=== PATIENT | male | born 1990 | race Two or more races ===

== ENCOUNTER 2020-12-03 19:04 | Emergency (ER) | payer OTHER, SELFPAY ==
--- NOTE | ~2020-12-03 | XR_ITS ---
EXAMINATION: XR FINGER, LEFT CLINICAL INFORMATION: Crush third digit with laceration COMPARISON: None TECHNIQUE: 3 views of the left third digit. FINDINGS: There is a comminuted acute fracture of the tip of the distal phalanx of the third digit with associated soft tissue swelling. No other fractures seen. No dislocation. XR/XR finger LT min 2V IMPRESSION: Fractured distal tip of the distal third phalanx
[2020-12-03 19:19] VITALS: BP 107/50; PULSE 64; RESP 16; TEMP 36.6; O2SAT 98; BMI 29.9
[2020-12-03] MEDS: oxyCODONE HCl Immed Release 5 MG TABLET PO (20:08)
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
== END 2020-12-03 21:34 | disposition home or self-care (01) ==
PROVIDERS: Emergency Provider Emergency Medicine
DX: S61.213A Laceration without foreign body of left middle finger without damage to nail, initial encounter (principal); S67.193A Crushing injury of left middle finger, initial encounter; X58.XXXA Exposure to other specified factors, initial encounter; Y93.9 Activity, unspecified; Y92.9 Unspecified place or not applicable; Y99.9 Unspecified external cause status
CPT/HCPCS: 73140; 99283; 99284

== ENCOUNTER → 2020-12-08 08:27 | Outpatient (BNVA) | payer OTHER, SELFPAY | PROVIDERS: Visit Provider Physician Assistant | DX: S62.632B Displaced fracture of distal phalanx of right middle finger, initial encounter for open fracture (principal); W23.0XXA Caught, crushed, jammed, or pinched between moving objects, initial encounter; W01.198A Fall on same level from slipping, tripping and stumbling with subsequent striking against other object, initial encounter; Y93.39 Activity, other involving climbing, rappelling and jumping off; Y92.9 Unspecified place or not applicable; Y99.8 Other external cause status | CPT/HCPCS: 99202 ==

== ENCOUNTER 2023-02-06 18:33 | Emergency (ER) | payer OTHER, SELFPAY ==
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
[2023-02-06 19:13] VITALS: BP 120/51; PULSE 74; RESP 16; TEMP 36.7; O2SAT 97; BMI 26.5
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
== END 2023-02-06 22:04 | disposition home or self-care (01) ==
PROVIDERS: Emergency Provider Emergency Medicine
DX: S39.012A Strain of muscle, fascia and tendon of lower back, initial encounter (principal); S16.1XXA Strain of muscle, fascia and tendon at neck level, initial encounter; M54.6 Pain in thoracic spine; R07.89 Other chest pain; M54.2 Cervicalgia; V44.5XXA Car driver injured in collision with heavy transport vehicle or bus in traffic accident, initial encounter; Y93.9 Activity, unspecified; Y92.410 Unspecified street and highway as the place of occurrence of the external cause; Y99.9 Unspecified external cause status; Z79.899 Other long term (current) drug therapy
CPT/HCPCS: 71045; 72072; 72100; 72125; 99284

== ENCOUNTER 2025-01-29 19:56 | Emergency (ER) | payer OTHER, SELFPAY ==
[2025-01-29 20:09] VITALS: BP 129/54; PULSE 72; RESP 16; TEMP 36.9; O2SAT 97; BMI 27.9
--- NOTE | 2025-01-29 20:14 | ED_ITS ---
HPI - Skin/Abscess/Foreign Bdy General Chief complaint: Urogenital-Male Stated complaint: Cysts/genital area Time Seen by Provider: 01/29/25 23:05 Source: patient Limitations: no limitations History of Present Illness ED Provider: Le Browne PA-C HPI narrative: 34-year-old male presents with concern for infected ?cyst? on the penis over the past 3 days. Patient states he has had similar lesions. The lesion resembled an infected hair, it has since increased in size, has become extremely tender. It is on the shaft of the penis. Denies fever. Related Data Previous Rx's ?Medication ?Instructions ?Recorded acetaminophen 500 mg tablet 1,000 mg (2 x 500 mg) PO Q ID PRN 12/03/20 (Tylenol Extra Strength) fever or pain #14 tabs cephalexin 500 mg capsule 500 mg PO Q6H 14 days #56 ca ps 12/03/20 ibuprofen 800 mg tablet 800 mg PO Q8H PRN pain #14 t abs 12/03/20 oxycodone 5 mg tablet 5 mg PO Q6H PRN pain #15 tab s 12/03/20 cyclobenzaprine 10 mg tablet 10 mg PO TID PRN muscle s pasm #20 02/06/23 tabs ibuprofen 600 mg tablet 600 mg PO Q6H PRN pain #30 t abs 02/06/23 lidocaine 5 % topical patch 1 patch topical DAILY #30 ea 02/06/23 doxycycline hyclate 100 mg capsule 100 mg PO BID #13 c aps 01/30/25 Allergies Allergy/AdvReac Type Severity Reaction Status Date / Time No Known Allergies Allergy Verified 01/30/25 20:54 Review of Systems Review of Systems: Yes all other systems are reviewed and are negative Constitutional: Constitutional: Denies fatigue and Denies fever(s) Cardiovascular: Cardiovascular: Denies chest pain and Denies dyspnea Respiratory: Respiratory: Denies dyspnea Gastrointestinal: Gastrointestinal: Denies abdominal pain, Denies nausea and Denies vomiting Genitourinary: Genitourinary: Reports genital lesions, Reports genital pain, Denies penile discharge, Denies scrotal swelling, Denies testicular mass and Denies testicular pain Endocrine: Endocrine: Denies fatigue PMFSH Past Medical History Attestation statement: The following information was validated with the patient. Medical History Asthma Social History Social History Alcohol intake: never Substance Use Type: Marijuana Advance Directives: No Advance Directives Information Provided: No Current occupational status: unemployed Current occupation: rt hand Physical Exam Vital Signs: Vital Signs: Last Vital Signs Temp 98.7 F 01/30/25 01:53 Pulse 66 01/30/25 01:53 Resp 16 01/30/25 01:53 BP 108/55 L 01/30/25 01:53 Pulse Ox 98 01/30/25 01:53 O2 Del Method Room Air 01/30/25 01:53 BMI result Body Mass Index 27.9 Const: Other: Alert well-appearing, anxious Orientation/consciousness: patient oriented x3 Resp: Effort & Inspection: normal respiratory effort Cardio: Other: Normal peripheral perfusion : Other: Tender fluctuant swelling along the penile shaft, overlying erythema, no active purulence, the remainder of the external genitalia is normal in appearance, no swelling erythema or tenderness of the testicles themselves no penile discharge Skin: Other: Warm dry no rash Neuro: General: patient oriented x3, gait normal, no focal motor deficits and CN's II-XI intact bilaterally Psych: Other: Cooperative Course Course Course Narrative: This is a RME preformed in triage by Marina Umanzor PA-C. Date:01/29/25, time 814 pm. Patient presents with penis abscess. Here with gf of 13 years. presents to the ED with his mother and girlfriend for evaluation of a painful mass on the underside (ventral surface) of his penis, described as on the bottom itself near but not on the scrotum/testicles. The lesion began on Friday (four days ago) as a small bump but has enlarged to approximately the size of a aramis?quarter. He attempted to express it at home, noted a small amount of white material/pus, after which the lesion became larger and more painful. He reports pain at the site but has taken no analgesics. He denies dysuria and significant urethral discharge. He has had similar, smaller lesions in the past that resolved spontaneously and were never this large. He felt like he was going to pass out when he tried to express the lesion at home. Review of Systems: ? Constitutional: Not discussed. ? Genitourinary: Painful penile mass as described; denies dysuria; minimal white material expressed once; otherwise no ongoing discharge. Work UP:?Needs I and D Will defer full ROS and PE to treating provider. Patient will continued to be monitored in the interim. Medications Administered Discontinued Medications Generic Name Dose Route Start Last Admin Trade Name Amalia PRN Reason Stop Dose Admin Doxycycline Monohydrate 100 mg 01/30/25 01:26 01/30/25 01:54 Doxycycline Monohydrate 100 Mg Capsule PO 01/30/25 01:27 100 mg ONCE ONE Administration Lidocaine/Epinephrine 10 ml 01/29/25 23:58 01/30/25 00:39 Lidocaine Hcl 1%/Epi 1:100,000 10 Ml Vial INFILTRATI 01/29/25 23:59 10 ml ONCE ONE Administration Midazolam HCl 3 mg 01/29/25 23:58 01/30/25 00:39 Midazolam Hcl 2 Mg/2 Ml Vial IVPUSH 01/29/25 23:59 3 mg ONCE ONE Administration Morphine Sulfate 4 mg 01/29/25 23:58 01/30/25 00:38 Morphine Sulfate 4 Mg/Ml Cartridge IVPUSH 01/29/25 23:59 4 mg ONCE ONE Administration Protocol Lidocaine/Epinephrine/Tetracaine 3 ml 01/29/25 23:58 01/30/25 00:09 Lidocaine/Racepinep/Tetracaine 3 Ml Gel.Pf.Meenakshi TOPICAL 01/29/25 23:59 3 ml ONCE ONE Administration Medical Decision Making Medical Decision Making MDM Narrative: 34-year-old male presents with concern for infected ?cyst? on the penis over the past 3 days. Patient states he has had similar lesions. The lesion resembled an infected hair, it has since increased in size, has become extremely tender. It is on the shaft of the penis. Denies fever. No chronic issues History: Per patient I have considered the following differential diagnoses: Syphilis, herpes, cyst, cellulitis, purulent cellulitis, abscess Plan: Patient has a an abscess, this is not an STD related lesion. Viewed with bedside ultrasound, there was a drainable fluid collection, we will I and D. In place on antibiotics. Premedicated with Versed and morphine. No indication for labs or imaging, labs were ordered from triage I have independently reviewed the following tests: Labs: Leukocytosis, no left shift, not anemic, no electrolyte abnormality Differential Diagnosis Differential Diagnoses: The differential diagnosis associated with the presentation includes See [facility] Admission/Observation Consideration of admission/observation: Escalation of care including admission/observation considered Not applicable Lab Data [facility] Lab Attestation statement: I reviewed the patient's lab results. Procedures Abscess I/D Site: other (Penile shaft) Sedation/analgesia: midazolam and other (Morphine) Local Anesthetic: lidocaine 1% and with epi Amount of anesthesia used (mL): 3 Technique: incised with blade and ultrasound guided (EMERGENCY ULTRASOUND [id number] Procedures Indication: Incision and Drainage Concern for abscess along penile shaft. Images saved, there is a drainable fluid collection. Performed by Le Browne PA-C 01/30/2025) Amount of fluid expressed (mL): 10 Sent for culture/gram staining?: No Irrigation: Yes Packing used?: iodoform Ultrasound ED POC Ultrasound: EMERGENCY ULTRASOUND REPORT?Ultrasound-Assisted ED Procedures Indication: Incisi on and Drainage Concern for abscess along penile shaft. Images saved, there is a drainable fluid collection. Performed by Le Browne PA-C 01/30/2025 Discharge Plan Discharge Clinical Impression: Abscess of shaft of penis Patient Disposition: Home, Self-Care Instructions: Incision and Drainage (ED) Additional Instructions: You had an abscess that was drained. See home care instructions. In 2 days, allow hot water to run over the site, remove the packing that has protruding from the incision site. Take the doxycycline as directed. Follow up with your primary care as needed. Prescriptions: New doxycycline hyclate 100 mg capsule 100 mg PO BID Qty: 13 0RF No Action ibuprofen 800 mg tablet 800 mg PO Q8H PRN (Reason: pain) Qty: 14 0RF acetaminophen [Tylenol Extra Strength] 500 mg tablet 1,000 mg PO QID PRN (Reason: fever or pain) Qty: 14 0RF cephalexin 500 mg capsule 500 mg PO Q6H 14 Days Qty: 56 0RF oxycodone 5 mg tablet 5 mg PO Q6H PRN (Reason: pain) Qty: 15 0RF cyclobenzaprine 10 mg tablet 10 mg PO TID PRN (Reason: muscle spasm) Qty: 20 0RF lidocaine 5 % adhesive patch,medicated 1 patch topical DAILY Qty: 30 0RF Rx Instructions: leave on most painful area for up to 12 hrs ibuprofen 600 mg tablet 600 mg PO Q6H PRN (Reason: pain) Qty: 30 0RF Interventions: ED Discharge Assessment Last Done: 01/30/25 01:53 Discharge Date/Time: 01/30/25 01:57 Print Language: Frisian
--- OUTSIDE RECORDS SUMMARY | 2025-01-29 22:28 | XMS_ITS | Encounter Summary ---
Author Organization [facility] Address [address] [place] [phone] Phone Care Team Providers Care Automatic Print Developer Name Role Phone Lisbet Torres NP Primary Care Provider María eubanks Encounter Details Date Type Department Care Team (Late st Contact Info) Description 10/03/2016 Conversion Encounter [facility] - [address] [address] Social History Tobacco Use Types Packs/Day Years Used Date Smoking Tobacco: Never Assessed Sex and Gender Information Value Date Recorded Sex Assigned at Not on file Legal Sex Male 4:28 PM EDT Gender Identity Not on file Sexual Orientation Not on file documented as of this encounter Plan of Treatment Not on file documented as of this encounter Visit Diagnoses Not on filedocumented in this encounter Care Teams Automatic Print Developer Relationship Specialty Start Date End Date Lisbet Torres NP PCP - General 09/27/16 05/01/22 documented as of this encounter
--- OUTSIDE RECORDS SUMMARY | 2025-01-29 22:28 | XMS_ITS | Clinical Summary ---
Author Organization [facility] Address [address] [place] [address] Phone Care Team Providers Care Belt Changer Name Role Phone Unavailable Primary Care Provider Unavailabl e Immunizations Immunization Administration Dates Next Due DTP 11/17/1995, 2,03/19/1991,10/17,1990 H1N1 02/14/2009 Hep B, ped/adol 07/20/1997,02/09/1996,11/17/1995 Hib (PRP-T) 04/16/1993, 2,03/19/1991,10/17 IPV 11/17/1995, 2,1990,08/16 Influenza, injectable, trivalent 02/14/2009,02/19 MMR 11/17/1995,09/17/1991 Meningococcal Conj (Menactra) MCV4P 01/14/2006 Td (adult) (MBL), 2 Lf tetan us toxoid, PF, adsorbed 12/13/2002 Tdap 04/20/2008 Family History Relation Name Status Comments Father Alive Father: Alive a nd well Maternal Grandfather Materna l grandfather: Diabetes mellitus Maternal Grandmother Materna l aunt: Migraines Mother Mother: Migrain es, Asthma Sister 1 Sister: ADD/ADH D, Asthma Sister 2 Sister: ADD/ADH D, Asthma Social History Tobacco Use Types Packs/Day Years Used Date Smoking Tobacco: Never Assessed Sex and Gender Information Value Date Recorded Sex Assigned at Not on file Legal Sex Male 4:28 PM EDT Gender Identity Not on file Sexual Orientation Not on file Plan of Treatment Health Maintenance Due Date Last Done Comments Varicella Vaccines (1 of 2 - 13+ 2-dose series) 05/15/2003 HPV Vaccines (1 - 3-dose SCDM series) 2017 DTaP,Tdap,and Td Vaccines (7 - Td or Tdap) 04/20/2018 04/20/2008, 12/13/2002, 11/17/1995, Additional history exists Influenza Vaccines (#1) 2024 02/14/2009, 03/19 COVID-19 Vaccine ( season) 2024 HIB Vaccines Completed 04/16/1993, 08/19, 03/19/1991, Additional history exists IPV Vaccines Completed 11/17/1995, 08/19, 1990, Additional history exists MMR Vaccines Completed 11/17/1995, 09/17/1991 Hepatitis B Vaccines Completed 07/20/1997, 02/09/1996, 11/17/1995 Meningococcal Vaccine Aged Out 01/14/2006 No jennifer flores eligible based on patient's age to complete this topic Hepatitis A Vaccines Aged Out No long er eligible based on patient's age to complete this topic Men B Vaccine Aged Out No longer elig ible based on patient's age to complete this topic Pneumococcal Vaccine Aged Out No long er eligible based on patient's age to complete this topic
[2025-01-29 22:42] VITALS: BP 134/47; PULSE 59; RESP 16; TEMP 37.1; O2SAT 98
[2025-01-30] MEDS: Lidocaine/Racepinep/Tetracaine 3 ML GEL.PF.APP TOPICAL (00:09)
[2025-01-30] MEDS: Lidocaine HCl 1%/Epi 1:100,000 10 ML VIAL INFILTRATI (00:39)
[2025-01-30 01:19] VITALS: BP 108/55; PULSE 66; RESP 16; TEMP 37.1; O2SAT 98
[2025-01-30 01:53] VITALS: BP 108/55; PULSE 66; RESP 16; TEMP 37.1; O2SAT 98
== END 2025-01-30 01:57 | disposition home or self-care (01) ==
PROVIDERS: Emergency Provider Emergency Medicine
DX: N48.21 Abscess of corpus cavernosum and penis (principal)
CPT/HCPCS: 55100; 76870; 93976; 99284; J2004; J2250; J2270

== ENCOUNTER 2025-01-30 20:47 | Emergency (ER) | payer OTHER, SELFPAY ==
--- NOTE | 2025-01-30 | ECG_ITS ---
Test Reason : SEIZURE Blood Pressure : */* mmHG Vent. Rate : 63 BPM Atrial Rate : 63 BPM P-R Int : 130 ms QRS Dur : 104 ms QT Int : 402 ms P-R-T Axes : -12 44 24 degrees QTcB Int : 411 ms Normal sinus rhythm RSR' or QR pattern in V1 suggests right ventricular conduction delay Early repolarization Borderline ECG When compared with ECG of 23-Feb-2012 22:02, Vent. rate has decreased by 32 bpm Nonspecific T wave abnormality, improved in Inferior leads Nonspecific T wave abnormality no longer evident in Lateral leads Referred By: Generic ED Physician Electronically Signed By: Alon Kebede
[2025-01-30 20:52] VITALS: BP 155/74; PULSE 70; O2SAT 98; BMI 26.0
[2025-01-30 20:53] VITALS: BP 125/48; PULSE 67; RESP 18; TEMP 36.8; O2SAT 97
--- NOTE | 2025-01-30 21:04 | PC.NURSE ---
Pt BIBA after a possible seizure at home witnessed by family. Pt had a cyst drained yesterday and was changing the bandage when pt became lightheaded and then seized. Pt reports one episode of this in the past under the same circumstances. Pt now a&ox4, able to recall the event. EKG and labs ordered.
[2025-01-30 21:16] LABS: MANUAL DIFF FLAG NO
[2025-01-30 21:31] LABS: Alanine Aminotransferase 40 U/L (0-40); Albumin Level 4.5 g/dL (3.5-5.0); Alkaline Phosphatase 55 U/L (39-117); Anion Gap 11 (12-20); Aspartate Amino Transferase 38 U/L (5-37); Blood Urea Nitrogen 23 mg/dL (9-16); Calcium 9.4 mg/dL (8.4-10.2); Carbon Dioxide 27 mmol/L (22-29); Chloride 103 mmol/L (96-108); Creatinine Clr Calc Pharmacy 93.1; Estimated Glomerular Filt Rate > 60; Magnesium 2.1 mg/dL (1.6-2.6); Potassium 4.0 mmol/L (3.3-5.1); Sodium 137 mmol/L (135-145); Total Protein 7.1 g/dL (6.5-8.0)
[2025-01-30 21:32] LABS: Hematocrit 38.9 % (42.0-52.0); Hemoglobin 12.6 g/dl (14.0-18.0); Imm Gran Abs Auto 0.05 X10*3/uL (0.00-0.03); Imm Gran Pct Auto 0.4 % (0.0-0.4); Lymphocytes Absolute Auto 2.5 X10*3/uL (1.2-4.9); Mean Corpuscular HGB Conc 32.4 g/dl (31.0-36.0); Mean Corpuscular Hemoglobin 29.5 pg (27.0-33.0); Mean Corpuscular Volume 91.1 fL (80.0-98.0); NRBC Abs Auto 0.000 X10*3/uL (0.0-0.012); NRBC Pct Auto 0.0 /100WBC (0.0-0.2); Platelet Count 199 X10*3/uL (160-400); Red Blood Count 4.27 X10*6/uL (4.60-5.80); White Blood Count 12.5 X10*3/uL (4.8-10.8)
--- OUTSIDE RECORDS SUMMARY | 2025-01-30 21:45 | XMS_ITS | Clinical Summary ---
Author Organization [facility] Address [address] [place] [address] Phone Care Team Providers Care Residential Program Director Name Role Phone Unavailable Primary Care Provider [...]
--- OUTSIDE RECORDS SUMMARY | 2025-01-30 21:45 | XMS_ITS | Encounter Summary ---
Author Organization [facility] Address [address] [place] [phone] Phone Care Team Providers Care Control Valve Mechanic Name Role Phone Lisbet Torres NP Primary Care Provider María eubanks Encounter Details Date Type Department Care Team (Late st Contact Info) Description 10/03/2016 Conversion Encounter [facility] - [address] [address] Social History Tobacco Use Types Packs/Day Years [...] on filedocumented in this encounter Care Teams Control Valve Mechanic Relationship Specialty Start Date End Date Lisbet Torres NP PCP - General 09/27/16 05/01/22 documented as of this encounter
--- NOTE | 2025-01-31 00:16 | ED.SYNCOPE ---
HPI - Syncope General Chief Complaint: Seizure Stated Complaint: seizure Time Seen by Provider: 01/30/25 21:08 Source: patient, family, EMS, RN notes reviewed and old records reviewed Mode of arrival: EMS Limitations: no limitations History of Present Illness ED Provider: Dr. Juanita Han HPI narrative: 34-year-old male with no significant past medical history presenting with altered mental status after a syncopal event that occurred immediately prior to arrival. Patient is partner is at the bedside reports that she witnessed him have an episode of seizure-like activity where his head rolled back, his arms and legs started shaking and he was unresponsive for approximately 20 seconds. No loss of bowel or bladder control. He did not bite his tongue. Afterwards was alert and oriented, responding to questions prior to EMS even arriving at the home. He has had multiple episodes of this in the past after seeing his own blood. Tonight he was changing his dressing after having a penile abscess drained yesterday. There is no report of fever, change in the serosanguineous drainage from the penis abscess, nausea or vomiting, focal numbness or weakness. Has been feeling well otherwise. Related Data Previous Rx's ?Medication ?Instructions ?Recorded acetaminophen 500 mg tablet 1,000 mg (2 x 500 mg) PO QID PRN 12/03/20 (Tylenol Extra Strength) fever or pain #14 tabs cephalexin 500 mg capsule 500 mg PO Q6H 14 days #56 caps 12/03/20 ibuprofen 800 mg tablet 800 mg PO Q8H PRN pain #14 tabs 12/03/20 oxycodone 5 mg tablet 5 mg PO Q6H PRN pain #15 tabs 12/03/20 cyclobenzaprine 10 mg tablet 10 mg PO TID PRN muscle spasm #20 02/06/23 tabs ibuprofen 600 mg tablet 600 mg PO Q6H PRN pain #30 tabs 02/06/23 lidocaine 5 % topical patch 1 patch topical DAILY #30 ea 02/06/23 doxycycline hyclate 100 mg capsule 100 mg PO BID #13 caps 01/30/25 Allergies Allergy/AdvReac Type Severity Reaction Status Date / Time No Known Allergies Allergy Verified 01/30/25 20:54 Review of Systems Review of Systems: As per HPI, full review of systems performed and negative but for the above mentioned pertinent positives and negatives. [facility] Past Medical History Medical History Asthma Social History Social History Alcohol intake: never Substance Use Type: Marijuana Advance Directives: No Advance Directives Information Provided: No Current occupational status: unemployed Current occupation: rt hand Physical Exam Exam: Exam: GENERAL: Well-Appearing, conversant, no acute distress. SKIN: Normal skin color for ethnicity, warm, dry, no rashes noted. HEENT: Normocephalic, atraumatic, no stridor, posterior oropharynx nonerythematous, dentition intact, EOMI. NECK: Soft, supple, full ROM, midline structures nontender, no step-offs, no deformities, no lymphadenopathy. CHEST: Heart regular rate and rhythm, no murmurs, symmetric chest rise and fall. PULMONARY: Clear to auscultation bilaterally, no labored breathing, no wheezes/rhales/rhonchi. ABDOMINAL: Soft, nondistended, nontender, positive bowel sounds in all quadrants. : Circumcised, incision and drainage site is clean, dry, no bleeding, no induration or fluctuance around the incision site. MUSCULOSKELETAL: Normal tone, full range of motion, no deformities, no peripheral edema. NEURO: Alert and oriented x3, CN II through XII intact, equal strength and sensation bilateral upper and lower extremities, no focal neurologic deficits. PSYCHIATRIC: Normal affect, fluid speech, good eye contact and appropriate demeanor. Vital Signs: Vital Signs: Last Vital Signs Temp 97.7 F 01/31/25 00:27 Pulse 56 01/31/25 00:27 Resp 16 01/31/25 00:27 BP 110/49 L 01/31/25 00:27 Pulse Ox 98 01/31/25 00:27 O2 Del Method Room Air 01/31/25 00:27 BMI result Body Mass Index 26.0 Medical Decision Making Medical Decision Making MDM Narrative: Patient presents today with chief complaint of syncope. I considered multiple diagnoses of etiology including most importantly cardiac arrhythmia, seizure, subarachnoid hemorrhage, vascular catastrophe such as AAA, as well as other more common etiologies such as a vasovagal syncope and orthostasis. Broad-based work-up was initiated to evaluate etiology including blood work and EKG. Patient is well-appearing, ambulatory in the emergency department without assistance. Symptoms consistent with vasovagal syncope. Improvement in his penile lesion, no evidence of cellulitis or worsening infection. Continued doxycycline at home. Discussed return precautions. Stable for discharge. Differential Diagnosis Differential Diagnoses: The differential diagnosis associated with the presentation includes (As above) Admission/Observation Consideration of admission/observation: Escalation of care including admission/observation considered Lab Data MDM Lab Attestation statement: I reviewed the patient's lab results. 01/30/25 21:11 01/30/25 21:11 Labs: Lab Results 01/30/25 Range/Units 21:11 WBC 12.5 H (4.8-10.8) X10*3/uL RBC 4.27 L (4.60-5.80) X10*6/uL Hgb 12.6 L (14.0-18.0) g/dl Hct 38.9 L (42.0-52.0) % MCV 91.1 (80.0-98.0) fL MCH 29.5 (27.0-33.0) pg MCHC 32.4 (31.0-36.0) g/dl RDW 12.6 (11.0-16.0) % Plt Count 199 (160-400) X10*3/uL MPV 9.6 (9.4-12.4) fL Immature Gran % (Auto) 0.4 (0.0-0.4) % Neut % (Auto) 67.4 (45-73) % Lymph % (Auto) 20.1 (20-40) % [place] % (Auto) 8.0 (2-11) % Eos % (Auto) 3.5 (0-4) % Baso % (Auto) 0.6 (0-2) % Lymph # (Auto) 2.5 (1.2-4.9) X10*3/uL [place] # (Auto) 1.0 (0.1-1.2) X10*3/uL Eos # (Auto) 0.4 (0.0-0.4) X10*3/uL Baso # (Auto) 0.1 (0.0-0.2) X10*3/uL Abs Immat Gran (auto) 0.05 H (0.00-0.03) X10*3/uL Absolute Neuts (auto) 8.4 H (2.0-8.3) x10*3/uL Absolute Nucleated RBC 0.000 (0.0-0.012) X10*3/uL Nucleated RBC % (auto) 0.0 (0.0-0.2) /100WBC Sodium 137 (135-145) mmol/L Potassium 4.0 (3.3-5.1) mmol/L Chloride 103 (96-108) mmol/L Carbon Dioxide 27 (22-29) mmol/L Anion Gap 11 L (12-20) BUN 23 H (9-16) mg/dL Creatinine 1.19 (0.5-1.4) mg/dL Estim Creat Clear Calc 93.1 Estimated GFR > 60 Random Glucose 120 H (60-115) mg/dL Calcium 9.4 (8.4-10.2) mg/dL Magnesium 2.1 (1.6-2.6) mg/dL Total Bilirubin 0.8 (0.0-1.0) mg/dL AST 38 H (5-37) U/L ALT 40 (0-40) U/L Alkaline Phosphatase 55 (39-117) U/L Total Protein 7.1 (6.5-8.0) g/dL Albumin 4.5 (3.5-5.0) g/dL Independent Interpretation I performed an independent interpretation of an: EKG Interpretation: My independent interpretation of the ECG reveals normal sinus rhythm with rate of 63, LVH, normal axis, normal intervals, no ST elevations or depressions to suggest ischemic changes, relatively unchanged from previous on 02/23/2012. Independent Historian Clinical information obtained from an independent historian. History obtained from or confirmed by: Spouse External Record Review External record reviewed: Inpatient record Discharge Plan Discharge Clinical Impression: Vasovagal syncope Patient Disposition: Home, Self-Care Instructions: Syncope (ED) Additional Instructions: Try to avoid passing out by sitting down if you start to feel lightheaded. But your legs over the level of your heart and/or put your head between her knees. Return to the emergency department with any further symptoms of passing out or seizure activity. Continue to do dressing changes as directed at your previous visit. Return to the emergency department with any new or worsening redness that spreads, fevers greater than 100? or any new symptom that concerns you. Call 911 with any medical emergency. Prescriptions: No Action ibuprofen 800 mg tablet 800 mg PO Q8H PRN (Reason: pain) Qty: 14 0RF acetaminophen [Tylenol Extra Strength] 500 mg tablet 1,000 mg PO QID PRN (Reason: fever or pain) Qty: 14 0RF cephalexin 500 mg capsule 500 mg PO Q6H 14 Days Qty: 56 0RF oxycodone 5 mg tablet 5 mg PO Q6H PRN (Reason: pain) Qty: 15 0RF cyclobenzaprine 10 mg tablet 10 mg PO TID PRN (Reason: muscle spasm) Qty: 20 0RF lidocaine 5 % adhesive patch,medicated 1 patch topical DAILY Qty: 30 0RF Rx Instructions: leave on most painful area for up to 12 hrs ibuprofen 600 mg tablet 600 mg PO Q6H PRN (Reason: pain) Qty: 30 0RF doxycycline hyclate 100 mg capsule 100 mg PO BID Qty: 13 0RF Print Language: Albanian
[2025-01-31 00:27] VITALS: BP 110/49; PULSE 56; RESP 16; TEMP 36.5; O2SAT 98
[2025-01-31 00:33] VITALS: BP 110/49; PULSE 56; RESP 16; TEMP 36.5; O2SAT 98
== END 2025-01-31 00:33 | disposition home or self-care (01) ==
PROVIDERS: Emergency Provider Emergency Medicine; PCP Internal Medicine
DX: R55 Syncope and collapse (principal); J45.909 Unspecified asthma, uncomplicated
CPT/HCPCS: 36415; 80053; 83735; 85025; 93005; 99283; 99284

== ENCOUNTER → 2025-01-30 21:04 | Outpatient (BNV) | payer OTHER, SELFPAY | PROVIDERS: Emergency Provider Emergency Medicine; PCP Internal Medicine; Visit Provider Internal Medicine Cardiovascular Disease | DX: R56.9 Unspecified convulsions (principal) | CPT/HCPCS: 93010 ==